=== PATIENT | female | born 1945 | race Caucasian/White ===

== ENCOUNTER 2018-05-11 17:32 | Emergency (ER) | payer MEDICARE, OTHER ==
[2018-05-11] MEDS ORDERED: Sodium Chloride 0.9% 10 ML Syringe FLUSH PRN (17:45)
[2018-05-11 18:17] LABS: ANION GAP 13.1; CHLORIDE,CL 91 mmol/L (101-111); SODIUM,NA 129 mmol/L (135-145)
[2018-05-11] MEDS ORDERED: Sodium Chloride 0.9% 1,000 ML IV ONE (18:25)
[2018-05-11] MEDS ORDERED: Acetaminophen 325 MG Tab PO ONE (18:25)
--- NOTE | 2018-05-11 18:26 | EDM.PDOC ---
Scribed by Divina Huynh 05/11/18 [id number] for Alem Curtis NP ED HPI GENERAL MEDICAL PROBLEM - General Chief Complaint: Neuro Symptoms/Deficits Stated Complaint: NOT FEELING WELL [id number] Time Seen by Provider: 05/11/18 17:45 Source of Information: Reports: Patient, RN, RN Notes Reviewed History Limitations: Reports: No Limitations - History of Present Illness INITIAL COMMENTS - FREE TEXT/NARRATIVE: Patient presents to ER with complaint of difficulty reading and finding words to speak---began about 5:00 p.m. Patient states she did feel somewhat unbalance , but mainly speech and memory, finding words--difficulty. Onset: Today Location: Reports: Generalized Severity: Moderate Improves with: Reports: None Worsens with: Reports: None Associated Symptoms: Reports: No Other Symptoms - Related Data Allergies Allergy/AdvReac Type Severity Reaction Status Date / Time No Known Allergies Allergy Verified 05/11/18 17:45 Home Meds: Home Meds Fish Oil/[place]-3 Fatty Acids [Fish Oil] 1,000 each PO DAILY 08/11/13 [History] Glucosamine Sulfate 2KCl [Glucosamine] 1,000 mg PO DAILY 08/11/13 [History] Meloxicam [Mobic] 15 mg PO ASDIRECTED PRN 08/11/13 [History] Methylsulfonylmethane [MSM] 1,000 mg PO DAILY 08/11/13 [History] Omeprazole 20 mg PO BID 08/11/13 [History] Ubidecarenone [Co Q-10] 100 mg PO DAILY 08/11/13 [History] atorvaSTATin [Lipitor] 10 mg PO BEDTIME 08/11/13 [History] hydroCHLOROthiazide [Hydrochlorothiazide] 25 mg PO DAILY 08/11/13 [History] tiZANidine [Zanaflex] 4 mg PO BEDTIME PRN 08/11/13 [History] Cholecalciferol (Vitamin D3) [Vitamin D3] 1,000 unit PO DAILY 05/11/18 [History] Social & Family History - Living Situation & Occupation Living situation: Reports: , with Family Occupation: Retired ED ROS GENERAL - Review of Systems Review Of Systems: ROS reveals no pertinent complaints other than HPI. ED EXAM, NEURO - Physical Exam Exam: See Below Exam Limited By: No Limitations General Appearance: Alert, WD/WN, No Apparent Distress Eye Exam: Bilateral Eye: Normal Inspection Ears: Normal External Exam, Normal Canal, Hearing Grossly Normal, Normal TMs Nose: Normal Inspection, Normal Mucosa, No Blood Throat/Mouth: Normal Inspection, Normal Lips, Normal Teeth, Normal Gums, Normal Oropharynx, Normal Voice, No Airway Compromise Head Exam: Atraumatic, Normocephalic Neck: Normal Inspection, Supple, Non-Tender, Full Range of Motion Respiratory/Chest: No Respiratory Distress, Lungs Clear, Normal Breath Sounds, No Accessory Muscle Use, Chest Non-Tender Cardiovascular: Normal Peripheral Pulses, Regular Rate, Rhythm, No Edema, No Gallop, No JVD, No Murmur, No Rub GI/Abdominal: Normal Bowel Sounds, Soft, Non-Tender, No Organomegaly, No Distention, No Abnormal Bruit, No Mass (Female) Exam: Deferred Rectal (Female) Exam: Deferred Neurological: Alert Back Exam: Normal Inspection, Full Range of Motion, NT Extremities: Normal Inspection, Normal Range of Motion, Non-Tender, No Pedal Edema, Normal Capillary Refill Psychiatric: Normal Affect, Normal Mood Skin Exam: Warm, Dry, Intact, Normal Color, No Rash Course - Vital Signs Last Recorded V/S: Last Vital Signs Temp 97.4 F 05/11/18 17:36 Pulse 137 H 05/11/18 17:36 Resp 18 05/11/18 17:36 BP 199/113 H 05/11/18 17:36 Pulse Ox 98 05/11/18 17:36 - Orders/Labs/Meds Orders: Active Orders 24 hr Category Date Time Status EKG Documentation Completion [RC] STAT Care 05/11/18 17:58 Active Peripheral IV Care [RC] . DIRECTED Care 05/11/18 17:45 Active DRUG SCREEN URINE BIORAD [URCHEM] Stat Lab 05/11/18 17:58 Ordered UA W/MICROSCOPIC [URIN] Stat Lab 05/11/18 17:58 Ordered Sodium Chloride 0.9% [Normal Saline] 1,000 ml Med 05/11/18 18:25 Active IV .BOLUS Sodium Chloride 0.9% [Saline Flush] Med 05/11/18 17:45 Active 10 ml FLUSH ASDIRECTED PRN Peripheral IV Insertion Adult [OM.PC] Routine Oth 05/11/18 17:45 Ordered Medication Orders Sodium Chloride (Normal Saline) 1,000 mls @ 999 mls/hr IV .BOLUS ONE Stop: 05/11/18 19:25 Last Admin: 05/11/18 18:32 Dose: 999 mls/hr Sodium Chloride (Saline Flush) 10 ml FLUSH ASDIRECTED PRN PRN Reason: Keep Vein Open Last Admin: 05/11/18 18:11 Dose: 10 ml Labs: Laboratory Tests 05/11/18 05/11/18 05/11/18 Range/Units 17:44 17:44 17:44 WBC 6.8 (5.0-10.0) 10^3/uL RBC 4.96 (4.2-5.4) 10^6/uL Hgb 13.9 (12.0-16.0) g/dL Hct 40.7 (37.0-47.0) % MCV 82.1 (80-100) fL MCH 28.0 (27.0-34.0) pg MCHC 34.2 (33.0-35.0) g/dL Plt Count 263 (150-450) 10^3/uL Neut % (Auto) 49.3 (42.2-75.2) % Lymph % (Auto) 40.7 (20.5-50.1) % Hawkins % (Auto) 8.4 H (2-8) % Eos % (Auto) 1.5 (1.0-3.0) % Baso % (Auto) 0.1 (0.0-1.0) % PT 9.4 (9.0-12.0) SEC INR 0.9 (0.9-1.2) Sodium 129 L (135-145) mmol/L Potassium 3.1 L (3.6-5.0) mmol/L Chloride 91 L (101-111) mmol/L Carbon Dioxide 28.0 (21.0-31.0) mmol/L Anion Gap 13.1 BUN 11 (7-18) mg/dL Creatinine 0.6 (0.6-1.3) mg/dL Est Cr Clr Drug Dosing 64.89 mL/min Estimated GFR (MDRD) > 60 BUN/Creatinine Ratio 18.33 Glucose 177 H (74-105) mg/dL Calcium 9.7 (8.4-10.2) mg/dl Total Bilirubin 0.4 (0.2-1.0) mg/dL AST 33 (10-42) IU/L ALT 26 (10-60) IU/L Alkaline Phosphatase 81 (42-121) IU/L Troponin I < 0.02 (0.00-0.02) ng/ml Total Protein 7.9 (6.7-8.2) g/dl Albumin 5.0 (3.2-5.5) g/dl Globulin 2.9 Albumin/Globulin Ratio 1.72 Ethyl Alcohol < 5 mg/dL Meds: Medications Generic Name Dose Route Start Last Admin Trade Name Freq PRN Reason Stop Dose Admin Sodium Chloride 1,000 mls @ 999 mls/hr 05/11/18 18:25 05/11/18 18:32 Normal Saline IV 05/11/18 19:25 999 mls/hr .BOLUS ONE Administration Sodium Chloride 10 ml 05/11/18 17:45 05/11/18 18:11 Saline Flush FLUSH 10 ml ASDIRECTED PRN Administration Keep Vein Open Discontinued Medications Generic Name Dose Route Start Last Admin Trade Name Freq PRN Reason Stop Dose Admin Acetaminophen 650 mg 05/11/18 18:25 05/11/18 18:32 Tylenol PO 05/11/18 18:26 650 mg NOW ONE Administration Lorazepam 1 mg 05/11/18 18:41 05/11/18 18:46 Ativan IVPUSH 05/11/18 18:42 1 mg ONETIME ONE Administration Potassium Chloride 40 meq 05/11/18 18:44 05/11/18 18:51 Klor-Con 10 PO 05/11/18 18:45 40 meq ONETIME ONE Administration - Radiology Interpretation Free Text/Narrative:: Head CT w/o contrast: IMPRESSION: 1. No acute intracerebral abnormality or injury. 2. Minimal patchy periventricular leukomalacia in both cerebral hemispheres, consistent with chronic underlying small vessel ischemic disease. 3. [place] Stroke Program Early CT Score (ASPECTS score) = 10. See rad report Departure - Departure Time of Disposition: 19:19 Disposition: DC/Tfer to Acute Hospital 02 Condition: Fair Clinical Impression: TIA (transient ischemic attack) - Discharge Information *PRESCRIPTION DRUG MONITORING PROGRAM REVIEWED*: No *COPY OF PRESCRIPTION DRUG MONITORING REPORT IN PATIENT BLANCA: No Forms: ED Department Discharge, Interfacility Transfer EMTALA - My Orders Last 24 Hours: My Active Orders 05/11/18 17:45 Peripheral IV Care [RC] . DIRECTED Sodium Chloride 0.9% [Saline Flush] 10 ml FLUSH ASDIRECTED PRN Peripheral IV Insertion Adult [OM.PC] Routine 05/11/18 17:58 EKG Documentation Completion [RC] STAT DRUG SCREEN URINE BIORAD [URCHEM] Stat UA W/MICROSCOPIC [URIN] Stat 05/11/18 18:25 Sodium Chloride 0.9% [Normal Saline] 1,000 ml IV .BOLUS - Assessment/Plan Last 24 Hours: My Active Orders 05/11/18 17:45 Peripheral IV Care [RC] . DIRECTED Sodium Chloride 0.9% [Saline Flush] 10 ml FLUSH ASDIRECTED PRN Peripheral IV Insertion Adult [OM.PC] Routine 05/11/18 17:58 EKG Documentation Completion [RC] STAT DRUG SCREEN URINE BIORAD [URCHEM] Stat UA W/MICROSCOPIC [URIN] Stat 05/11/18 18:25 Sodium Chloride 0.9% [Normal Saline] 1,000 ml IV .BOLUS I have read and agree with the documentation that has been completed regarding this visit. By signing this record, I attest that the documentation was completed in my physical presence and is an accurate record of the encounter.
[2018-05-11] MEDS ORDERED: LORazepam 2 MG/ML Syringe IVPUSH ONE (18:41)
[2018-05-11] MEDS ORDERED: Potassium Chloride 10 MEQ Tab.ER PO ONE (18:44)
== END 2018-05-11 21:16 ==
LOC: DL.ED 17:32
DX: G45.9 Transient cerebral ischemic attack, unspecified (principal); Z79.899 Other long term (current) drug therapy
CPT/HCPCS: 36415; 70450; 80053; 80305; 81001; 84484; 85025; 85610; 93005; 96361; 96374; 99285; A9270; G0480; J2060; J7030; J7050

== ENCOUNTER 2020-03-01 06:25 | Day surgery (SDC) | payer MEDICARE, OTHER ==
[2020-03-01] MEDS ORDERED: fentaNYL 100 MCG/2 ML SDV IV ONE ×3 (06:26→07:32)
[2020-03-01] MEDS ORDERED: Midazolam 1 MG/ML 2 ML SDV IV ONE ×3 (06:26→07:33)
[2020-03-01] MEDS ORDERED: Dextrose 5%-0.45% NaCl 1,000 ML IV SCH (06:30)
[2020-03-01] MEDS ORDERED: fentaNYL 100 MCG/2 ML SDV ONE (06:36)
[2020-03-01] MEDS ORDERED: Midazolam 1 MG/ML 2 ML SDV ONE (06:36)
--- NOTE | 2020-03-01 09:03 | OR ---
DATE: 03/01/2020 PROCEDURES: Esophagogastroduodenoscopy and multiple pinch biopsies. INSTRUMENT USED: [id number]-[id number] Olympus video panendoscope. PREMEDICATIONS: No oral or topical anesthesia used. Fentanyl 100 mcg intravenous, Versed 2 mg intravenous, nasal O2 cannula. The procedure was done under pulse oximetry, BP recording, and monitoring manager. INDICATION: The patient with persistent longstanding dyspepsia, dysphagia, unexplained and not responsive to medical measures. Esophagogastroduodenoscopy is performed for detection of any active erosive lesions, Bergman esophagus and/or malignancy also under consideration, H pylori status to be determined, esophageal dilatations if indicated, endoscopic hemostasis therapy if needed. DESCRIPTION OF PROCEDURE: The scope was passed with ease. Adequate visualization of the esophagus was made from proximal to distal areas. No upper esophageal lesions identified. No distal esophageal stricture. No uphill or downhill esophageal varices. No Francie-Gomez tear. No evidence of erosive esophagitis by [place] criteria. No esophageal polyp or tumor mass identified. Z-line was seen at around 36 cm distal to the oral verge. Four- quadrant biopsies were taken from the pink columnar epithelium at 36 cm distal to the oral verge and sent for any evidence of intestinal hyperplasia. No proximal gastric varices noted. Gastric fundus examination by retroflexion showed multiple diminutive gastric polyps. No proximal gastric varices noted. No gastric ulcer, malignant mass, or vascular ectasia identified. Duodenal bulb showed no ulcer. Visualized second part of the duodenum is unremarkable. Multiple pinch biopsies were taken from the gastric antrum and proximal body and sent for PyloriTek test for H pylori and histopathology. No bleeding was noted from any of the visualized areas at the completion of examination. Photographs were taken of the duodenal bulb, gastric antrum, fundus, and distal esophagus. IMPRESSION: Diminutive gastric fundus polyps. The patient tolerated the procedure well. [facility] /[id number]
== END 2020-03-01 10:00 | disposition home or self-care (01) ==
LOC: DL.ENDO 06:25
PROVIDERS: ATTEND Internal Medicine Gastroenterology
DX: K21.0 Gastro-esophageal reflux disease with esophagitis (principal); K31.89 Other diseases of stomach and duodenum; K31.7 Polyp of stomach and duodenum; E78.5 Hyperlipidemia, unspecified; I10 Essential (primary) hypertension; M19.90 Unspecified osteoarthritis, unspecified site; Z98.890 Other specified postprocedural states; Z90.89 Acquired absence of other organs; Z88.8 Allergy status to other drugs, medicaments and biological substances; Z88.5 Allergy status to narcotic agent; Z96.649 Presence of unspecified artificial hip joint
CPT/HCPCS: 43239; 87077; J2250; J3010; J7042; 88305; 88342

== ENCOUNTER 2020-03-08 05:20 | Day surgery (SDC) | payer MEDICARE, OTHER ==
[2020-03-08] MEDS ORDERED: fentaNYL 100 MCG/2 ML SDV IV ONE (05:21)
[2020-03-08] MEDS ORDERED: Midazolam 1 MG/ML 2 ML SDV IV ONE (05:21)
[2020-03-08] MEDS ORDERED: Sodium Chloride 0.9% 10 ML Syringe FLUSH PRN (06:00)
[2020-03-08] MEDS: Dextrose 5%-0.45% NaCl 1,000 ML IV SCH (06:06)
[2020-03-08] MEDS ORDERED: fentaNYL 100 MCG/2 ML SDV ONE (06:10)
[2020-03-08] MEDS ORDERED: Midazolam 1 MG/ML 2 ML SDV ONE (06:10)
[2020-03-08] MEDS: fentaNYL 100 MCG/2 ML SDV IV ONE ×2 (06:39→06:40)
[2020-03-08] MEDS: Midazolam 1 MG/ML 2 ML SDV IV ONE ×6 (06:40→06:52)
--- NOTE | 2020-03-08 14:24 | OR ---
DATE: 03/08/2020 PROCEDURE: Total colonoscopy. INSTRUMENT USED: [id number]-H190DL Olympus video colonoscope. PREMEDICATIONS: Fentanyl 100 mcg intravenous, Versed 4 mg intravenous, nasal O2 cannula. The procedure was done under pulse oximetry, BP recording, and groundwater monitoring technician. INDICATION: Screening colonoscopic examination is done for detection of any polypoid lesions and removal, endoscopic hemostasis therapy if needed. DESCRIPTION OF PROCEDURE: Initial rectal exam was unremarkable. Rigid anoscopy was normal. The colonoscope was passed up to the ileocecal area. Photographs were taken. No bleeding was noted from any of the visualized areas at the commencement of the examination. The colon was found to be tortuous and redundant, exam a bit prolonged. There was moderate amount of fecal material that had to be aspirated, Dover scale 2 in all the areas. Total score 6. No bleeding was noted from any of the visualized areas at the commencement of the examination. No stricture. No vascular ectasia. No large isolated ulcerations seen. No evidence of diffuse inflammatory bowel disease in the form of friability, contact bleeding, or ulcerations. No polyp or tumor mass identified. Probing the proximal sides of folds and flexures using adequate distention and clearing up the stool material, withdrawal of the scope was made, cecum to rectum time over 6 minutes. No bleeding was noted from any of the visualized areas at the completion of examination. IMPRESSION: Normal study. The patient tolerated the procedure well. [facility] /[id number]
== END 2020-03-08 09:00 | disposition home or self-care (01) ==
LOC: DL.ENDO 05:20
PROVIDERS: ATTEND Internal Medicine Gastroenterology
DX: Z12.11 Encounter for screening for malignant neoplasm of colon (principal); Q43.8 Other specified congenital malformations of intestine; E78.5 Hyperlipidemia, unspecified; I10 Essential (primary) hypertension; K21.9 Gastro-esophageal reflux disease without esophagitis; Z88.8 Allergy status to other drugs, medicaments and biological substances; Z96.649 Presence of unspecified artificial hip joint; Z79.82 Long term (current) use of aspirin; Z90.89 Acquired absence of other organs
CPT/HCPCS: G0121; J2250; J3010; J7042

== ENCOUNTER 2020-04-11 16:11 | Emergency (ER) | payer MEDICARE, OTHER ==
[2020-04-11] MEDS ORDERED: Cephalexin 500 MG Cap PO ONE (17:18)
--- NOTE | 2020-04-11 17:30 | EDM.PDOC ---
Scribed by Divina Huynh 04/11/20 1722 for Donna Trujillo MD ED HPI GENERAL MEDICAL PROBLEM - General Chief Complaint: Genitourinary Problem Stated Complaint: UTI,BLOOD COMING OUT. Time Seen by Provider: 04/11/20 17:10 Source of Information: Reports: Patient, RN, RN Notes Reviewed History Limitations: Reports: No Limitations - History of Present Illness INITIAL COMMENTS - FREE TEXT/NARRATIVE: Patient presents to ED for dysuria and blood in the urine. The dysuria started yesterday with increased urgency and frequency. Patient has noted blood in the urine today. She becam concerned and came to the emergency department. She denies any fevers or chills. She denies any abdominal pain. She denies back pain. She does not get UTIs commonly. Onset: Gradual Duration: Constant Quality: Reports: Ache Severity: Moderate Improves with: Reports: None Worsens with: Reports: None Associated Symptoms: Reports: No Other Symptoms Perineal Area Pain Score (Numeric/FACES): 6 - Related Data Allergies Allergy/AdvReac Type Severity Reaction Status Date / Time ezetimibe [From Zetia] Allergy Leg Cramps Verified 04/11/20 16:32 pravastatin Allergy Leg Cramps Verified 04/11/20 16:32 Blwmabl-Auj-Vnu Reductase Allergy Leg Cramps Verified 04/11/20 16:32 Inhibitor tramadol Allergy Dizziness Verified 04/11/20 16:32 Home Meds: Home Meds Fish Oil/[place]-3 Fatty Acids [Fish Oil] 1,000 each PO DAILY 08/11/13 [History] Glucosamine Sulfate [place] Chlr [Glucosamine] 1,000 mg PO DAILY 08/11/13 [History] Methylsulfonylmethane [MSM] 1,000 mg PO DAILY 08/11/13 [History] Omeprazole 20 mg PO BID 08/11/13 [History] hydroCHLOROthiazide [Hydrochlorothiazide] 25 mg PO DAILY 08/11/13 [History] Cholecalciferol (Vitamin D3) [Vitamin D3] 1,000 unit PO DAILY 05/11/18 [History] Acetaminophen [Tylenol Extra Strength] 500 mg PO DAILY PRN 03/01/20 [History] Aspirin [Aspirin EC] 81 mg PO DAILY 03/01/20 [History] Emollient Base [Emollient] 1 dose TOP DAILY 03/01/20 [History] lisinopriL [Lisinopril] 20 mg PO DAILY 03/01/20 [History] Plant Stanol [place] [Cholest Off Plus] 450 mg PO DAILY 03/08/20 [History] Past Medical History HEENT History: Reports: Impaired Vision Other HEENT History: WEARS CORRECTIVE LENSES Cardiovascular History: Reports: High Cholesterol, Hypertension Respiratory History: Reports: None Gastrointestinal History: Reports: GERD Genitourinary History: Reports: None [employer] History: Reports: Musculoskeletal History: Reports: Arthritis, Back Pain, Chronic, Osteoarthritis, Osteoporosis Neurological History: Reports: None Psychiatric History: Reports: None Endocrine/Metabolic History: Reports: None Hematologic History: Reports: None Immunologic History: Reports: None Oncologic (Cancer) History: Reports: None Dermatologic History: Reports: Other (See Below) 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 - Infectious Disease History Infectious Disease History: Reports: Chicken Pox, Measles, Mumps - Past Surgical History Head Surgeries/Procedures: Reports: None HEENT Surgical History: Reports: None Cardiovascular Surgical History: Reports: None Respiratory Surgical History: Reports: None GI Surgical History: Reports: EGD Female Surgical History: Reports: None Endocrine Surgical History: Reports: None Neurological Surgical History: Reports: None Musculoskeletal Surgical History: Reports: Arthroscopic Knee, Joint Replacement, Other (See Below) Other Musculoskeletal Surgeries/Procedures:: RIGHT HIP REPLACEMENT; LEFT KNEE Oncologic Surgical History: Reports: None Dermatological Surgical History: Reports: None Social & Family History - Family History Family Medical History: Noncontributory - Tobacco Use Smoking Status *Q: Never Smoker Second Hand Smoke Exposure: No - Caffeine Use Caffeine Use: Reports: Coffee Other Caffeine Use: 1 CUP OF COFFEE DAILY - Recreational Drug Use Recreational Drug Use: No - Living Situation & Occupation Living situation: Reports: , with Family Occupation: Retired ED ROS GENERAL - Review of Systems Review Of Systems: Comprehensive ROS is negative, except as noted in HPI. ED EXAM, RENAL/ - Physical Exam Exam: See Below Exam Limited By: No Limitations General Appearance: Alert, WD/WN, No Apparent Distress Eye Exam: Bilateral Eye: Normal Inspection Ears: Normal External Exam, Normal Canal, Hearing Grossly Normal, Normal TMs Nose: Normal Inspection, Normal Mucosa, No Blood Throat/Mouth: Normal Inspection, Normal Lips, Normal Teeth, Normal Gums, Normal Oropharynx, Normal Voice, No Airway Compromise Head: Atraumatic Neck: Normal Inspection, Supple, Non-Tender, Full Range of Motion Respiratory/Chest: No Respiratory Distress, Lungs Clear, Normal Breath Sounds, No Accessory Muscle Use, Chest Non-Tender Cardiovascular: Normal Peripheral Pulses, Regular Rate, Rhythm, No Edema, No Gallop, No JVD, No Murmur, No Rub GI/Abdominal: Normal Bowel Sounds, Soft, Non-Tender, No Organomegaly, No Distention, No Abnormal Bruit, No Mass (Female) Exam: Deferred Rectal (Female) Exam: Deferred Back Exam: Normal Inspection, Full Range of Motion, NT Extremities: Normal Inspection, Normal Range of Motion, Non-Tender, Normal Capillary Refill, No Pedal Edema Neurological: Alert, Oriented, CN II-XII Intact, Normal Cognition, Normal Gait, Normal Reflexes, No Motor/Sensory Deficits Psychiatric: Normal Affect, Normal Mood Skin Exam: Warm, Dry, Intact, Normal Color, No Rash Lymphatic: No Adenopathy Course - Vital Signs Last Recorded V/S: Last Vital Signs Temp 97.3 F 04/11/20 16:23 Pulse 110 H 04/11/20 16:23 Resp 16 04/11/20 16:23 BP 160/91 H 04/11/20 16:23 Pulse Ox 99 04/11/20 16:23 - Orders/Labs/Meds Orders: Active Orders 24 hr Category Date Time Status CULTURE URINE [RM] Stat Lab 04/11/20 16:20 Received Labs: Laboratory Tests 04/11/20 Range/Units 16:20 Urine Color Red (YELLOW) Urine Appearance Turbid (CLEAR) Urine pH 6.0 (5.0-9.0) Ur Specific [place] >= 1.030 (1.005-1.030) Urine Protein >=300 H (NEGATIVE) Urine Glucose (UA) Negative (NEGATIVE) Urine Ketones Trace H (NEGATIVE) Urine Occult Blood Moderate H (NEGATIVE) Urine Nitrite Negative (NEGATIVE) Urine Bilirubin Negative (NEGATIVE) Urine Urobilinogen 0.2 (0.2-1.0) mg/dL Ur Leukocyte Esterase Trace H (NEGATIVE) Urine RBC >100 H /HPF Urine WBC 40-50 H (0-5/HPF) /HPF Ur Epithelial Cells Few (NOT SEEN) /HPF Amorphous Sediment Few (NOT SEEN) /HPF Urine Bacteria Few (0-FEW/HPF) /HPF Urine Mucus Moderate H (NOT SEEN) /LPF Meds: Medications Discontinued Medications Generic Name Dose Route Start Last Admin Trade Name Freluci PRN Reason Stop Dose Admin Cephalexin 500 mg 04/11/20 17:18 04/11/20 17:24 Keflex PO 04/11/20 17:19 500 mg ONETIME ONE Administration - Re-Assessments/Exams Free Text/Narrative Re-Assessment/Exam: 04/11/20 17:21 Given a dose of Keflex here in the ED and sent home with a prescription for Keflex. Departure - Departure Time of Disposition: 17:22 Disposition: Home, Self-Care 01 Condition: Good Clinical Impression: UTI, Urinary tract infectious disease - Discharge Information *PRESCRIPTION DRUG MONITORING PROGRAM REVIEWED*: Not Applicable *COPY OF PRESCRIPTION DRUG MONITORING REPORT IN PATIENT BLANCA: Not Applicable Instructions: Urinary Tract Infection, Adult, [id number] Forms: ED Department Discharge Additional Instructions: RX: Keflex. Follow up with your primary care provider in a week as scheduled. Sepsis Event Note (ED) - Evaluation Sepsis Screening Result: No Definite Risk - Focused Exam Vital Signs: Vital Signs Temp Pulse Resp BP Pulse Ox 04/11/20 16:23 97.3 F 110 H 16 160/91 H 99 - My Orders Last 24 Hours: My Active Orders 04/11/20 16:20 CULTURE URINE [RM] Stat - Assessment/Plan Last 24 Hours: My Active Orders 04/11/20 16:20 CULTURE URINE [RM] Stat I have read and agree with the documentation that has been completed regarding this visit. By signing this record, I attest that the documentation was completed in my physical presence and is an accurate record of the encounter.
== END 2020-04-11 17:29 | disposition home or self-care (01) ==
LOC: DL.ED 16:11
DX: N39.0 Urinary tract infection, site not specified (principal); E78.00 Pure hypercholesterolemia, unspecified; I10 Essential (primary) hypertension; K21.9 Gastro-esophageal reflux disease without esophagitis; M81.0 Age-related osteoporosis without current pathological fracture; Z88.3 Allergy status to other anti-infective agents; Z88.6 Allergy status to analgesic agent; Z88.8 Allergy status to other drugs, medicaments and biological substances; Z79.82 Long term (current) use of aspirin; Z79.899 Other long term (current) drug therapy
CPT/HCPCS: 81001; 87086; 99283; A9270